=== PATIENT | male | born 1960 | race Caucasian/White ===

== ENCOUNTER 2018-03-11 20:59 | Inpatient (IN) ==
[2018-03-11 22:13] LABS: Basophils % 0.6 % (0.0-0.8); Eosinophils # 0.1 10*3/uL (0.0-0.87); Eosinophils % 4.2 % (0.00-10.9); Hematocrit 29.3 VOL% (42.0-52.0); Hemoglobin 10.1 GM/DL (14.0-18.0); Immature Granulocytes % 0.3 %; Immature Granulocytes Absolute 0.01 #; Lymphocytes # 0.8 10*3/uL (1.4-4.0); Lymphocytes % 22.4 % (21.2-54.2); Mean Corpuscular HGB Conc 34.5 GM/DL (32-36); Mean Corpuscular Hemoglobin 37 PG (27-34); Mean Corpuscular Volume 106.5 FL (87-102); Mean Platelet Volume 10.1 FL (9.6-12.0); Monocytes # 0.3 10*3/uL (0.11-0.8); Neutrophils # 2.1 10*3/uL (1.4-7.4); Neutrophils % 63.5 % (38.7-73.9); Red Blood Count 2.75 MC/CUMM (3.8-5.5); White Blood Count 3.4 T/CUMM (4-12)
[2018-03-11 22:31] LABS: Albumin 2.9 G/DL (3.4-5.0); Bilirubin,Total 2.4 MG/DL (0.2-1.0); Calcium 8.4 MG/DL (8.5-10.1); Osmolality,Calculated 283.1 MOS/KG (273-304); Potassium 3.7 MMOL/L (3.5-5.1); Total Protein 7.1 G/DL (6.4-8.3)
[2018-03-11 22:36] LABS: Platelet Count 45 T/CUMM (130-400)
[2018-03-11 22:37] LABS: Platelet Estimate Decreased
[2018-03-11] MEDS ORDERED: MAGNESIUM SULF RIDER 1 GM in PREMIX 1 EACH IV STA (22:40)
[2018-03-11 23:40] LABS: Apearance,Urine CLEAR (Clear); Bilirubin,Urine Negative (Negative); Blood, Urine Negative (Negative); Glucose,Urine (UA) Negative (Negative); Ketones,Urine Negative (Negative); Mucus,Urine Occasional /LPF (Occasional); Nitrite,Urine Negative (Negative); Protein,Urine Negative; RBC,Urine 1 /HPF (0-4); Squamous Epithelial Cell,Urine Occasional /HPF (0-10); Urine Color Amber (Yellow); Urine Specific Gravity 1.056 (1.001-1.035); WBC,Urine 4 /HPF (0-6)
[2018-03-12] MEDS ORDERED: MAGNESIUM SULF RIDER 50 ML IV ONE (00:45)
[2018-03-12] MEDS ORDERED: DEXTROSE 50% 25 GM/50 ML VIAL IV PRN (02:45)
[2018-03-12] MEDS ORDERED: GLUCAGON 1 MG VIAL IM PRN (02:45)
[2018-03-12] MEDS ORDERED: ONDANSETRON 4 MG/2 ML VIAL IV PRN (02:45)
[2018-03-12] MEDS ORDERED: SPIRONOLACTONE 50 MG TABLET PO SCH (04:00)
[2018-03-12] MEDS ORDERED: FUROSEMIDE 40 MG TABLET PO SCH (04:00)
[2018-03-12] MEDS ORDERED: INFLUENZA VIRUS VACCINE 0.5 ML SYRINGE IM ONE (05:19)
[2018-03-12] MEDS: FUROSEMIDE 40 MG TABLET PO SCH (05:55)
[2018-03-12] MEDS: SPIRONOLACTONE 50 MG TABLET PO SCH (05:55)
[2018-03-12 06:02] LABS: INR 1.4; PT Patient Result 14.3 SECS; Partial Thromboplastin Time 33.5 SECS (0-40)
[2018-03-12 06:18] LABS: Albumin 2.7 G/DL (3.4-5.0); Bilirubin,Total 2.4 MG/DL (0.2-1.0); Calcium 8.1 MG/DL (8.5-10.1); Potassium 4.1 MMOL/L (3.5-5.1); Total Protein 6.7 G/DL (6.4-8.3)
[2018-03-12 07:21] LABS: Hepatitis A Ab IgM Quant < 0.02 Index; Hepatitis A Ab IgM Result Negative (Negative); Hepatitis B Core IgM Quant 0.14 Index; Hepatitis B Core IgM Result Negative (Negative); Hepatitis B Surface Ag Quant < 0.10 Index; Hepatitis B Surface Ag Result Negative (Negative); Hepatitis C Virus Ab Quant > 11.00 Index; Hepatitis C Virus Ab Result Positive (Negative)
[2018-03-12] MEDS ORDERED: MAGNESIUM SULF RIDER 2 GM in PREMIX 1 EACH IV ONE (10:44)
[2018-03-12] MEDS: INSULIN LISPRO 100 UNIT/ML SUBCUT SCH ×2 (12:17→16:40)
[2018-03-12] MEDS: RIFAXIMIN 550 MG TABLET PO SCH (21:26)
[2018-03-13 05:49] LABS: Basophils % 0.6 % (0.0-0.8); Eosinophils # 0.1 10*3/uL (0.0-0.87); Eosinophils % 2.8 % (0.00-10.9); Hematocrit 27.7 VOL% (42.0-52.0); Hemoglobin 9.4 GM/DL (14.0-18.0); Lymphocytes # 0.8 10*3/uL (1.4-4.0); Lymphocytes % 21.4 % (21.2-54.2); Mean Corpuscular HGB Conc 33.9 GM/DL (32-36); Mean Corpuscular Hemoglobin 36 PG (27-34); Mean Corpuscular Volume 106.9 FL (87-102); Mean Platelet Volume 11.4 FL (9.6-12.0); Monocytes # 0.3 10*3/uL (0.11-0.8); Monocytes % 8.1 % (1.7-12.7); Neutrophils # 2.4 10*3/uL (1.4-7.4); Neutrophils % 67.1 % (38.7-73.9); Red Blood Count 2.59 MC/CUMM (3.8-5.5); Red Cell Distribution Width 14.6 % (9.3-17.3); White Blood Count 3.6 T/CUMM (4-12)
[2018-03-13 06:04] LABS: Platelet Count 38 T/CUMM (130-400)
[2018-03-13 06:08] LABS: Calcium 8.2 MG/DL (8.5-10.1); Osmolality,Calculated 281.3 MOS/KG (273-304); Potassium 4.1 MMOL/L (3.5-5.1)
[2018-03-13 06:13] LABS: Hypochromasia Slight; Ovalocytes 2+; Platelet Estimate Decreased
[2018-03-13 06:18] LABS: % Iron Saturation 64.1 % (18-50)
[2018-03-13 06:19] LABS: Folate 9.7 NG/ML (5.4-24.0)
[2018-03-13] MEDS: INSULIN LISPRO 100 UNIT/ML SUBCUT SCH ×2 (08:39→17:35)
[2018-03-13] MEDS: SPIRONOLACTONE 50 MG TABLET PO SCH (09:51)
[2018-03-13] MEDS: FUROSEMIDE 40 MG TABLET PO SCH (09:51)
[2018-03-13] MEDS: RIFAXIMIN 550 MG TABLET PO SCH ×2 (09:52→21:09)
[2018-03-14 05:43] LABS: Basophils % 0.9 % (0.0-0.8); Eosinophils # 0.2 10*3/uL (0.0-0.87); Hematocrit 28.4 VOL% (42.0-52.0); Hemoglobin 9.9 GM/DL (14.0-18.0); Immature Granulocytes % 0.2 %; Immature Granulocytes Absolute 0.01 #; Lymphocytes # 0.8 10*3/uL (1.4-4.0); Lymphocytes % 19.5 % (21.2-54.2); Mean Corpuscular HGB Conc 34.9 GM/DL (32-36); Mean Corpuscular Hemoglobin 38 PG (27-34); Mean Corpuscular Volume 107.6 FL (87-102); Mean Platelet Volume 10.1 FL (9.6-12.0); Monocytes # 0.3 10*3/uL (0.11-0.8); Monocytes % 7.8 % (1.7-12.7); Neutrophils # 2.9 10*3/uL (1.4-7.4); Neutrophils % 67.6 % (38.7-73.9); Platelet Count 42 T/CUMM (130-400); Red Blood Count 2.64 MC/CUMM (3.8-5.5); Red Cell Distribution Width 14.8 % (9.3-17.3); White Blood Count 4.3 T/CUMM (4-12)
[2018-03-14 05:50] LABS: INR 1.4; PT Patient Result 14.8 SECS
[2018-03-14 06:04] LABS: Albumin 2.5 G/DL (3.4-5.0); Bilirubin,Total 1.6 MG/DL (0.2-1.0); Calcium 8.2 MG/DL (8.5-10.1); Osmolality,Calculated 281.4 MOS/KG (273-304); Potassium 3.7 MMOL/L (3.5-5.1); Total Protein 6.7 G/DL (6.4-8.3)
[2018-03-14 06:15] LABS: Ovalocytes 1+; Platelet Estimate Decreased
[2018-03-14] MEDS: INSULIN LISPRO 100 UNIT/ML SUBCUT SCH ×2 (08:48→16:32)
[2018-03-14] MEDS: RIFAXIMIN 550 MG TABLET PO SCH ×2 (08:49→21:45)
[2018-03-14] MEDS: SPIRONOLACTONE 50 MG TABLET PO SCH (08:49)
[2018-03-14] MEDS: FUROSEMIDE 40 MG TABLET PO SCH (08:49)
[2018-03-14] MEDS ORDERED: MAGNESIUM SULF RIDER 2 GM in PREMIX 1 EACH IV PRN (13:42)
[2018-03-14] MEDS ORDERED: MAGNESIUM SULF RIDER 4 GM in PREMIX 1 EACH IV PRN (13:42)
[2018-03-14] MEDS ORDERED: POTASSIUM CHLORIDE RIDER 10 MEQ in PREMIX 1 EACH IV PRN (13:42)
[2018-03-14] MEDS ORDERED: ALUMINUM/MAGNES/SIMETH MAX STR 30 ML UDCUP PO PRN (15:59)
[2018-03-14] MEDS ORDERED: MAGNESIUM HYDROXIDE SUSP 30 ML UDCUP PO PRN (15:59)
[2018-03-14] MEDS: PANTOPRAZOLE 40 MG TABLET PO SCH (16:32)
[2018-03-14] MEDS: LACTULOSE 20 GM/30 ML UDCUP PO SCH (20:35)
[2018-03-14 20:42] LABS: Neutrophils,Peritoneal Fluid 22 %
[2018-03-14 20:43] LABS: RBC,Peritoneal Fluid 20 T/CUMM
[2018-03-15 04:44] LABS: Basophils % 0.4 % (0.0-0.8); Eosinophils # 0.2 10*3/uL (0.0-0.87); Eosinophils % 3.6 % (0.00-10.9); Hematocrit 27.2 VOL% (42.0-52.0); Hemoglobin 9.4 GM/DL (14.0-18.0); Immature Granulocytes % 0.4 %; Immature Granulocytes Absolute 0.02 #; Lymphocytes # 0.7 10*3/uL (1.4-4.0); Lymphocytes % 15.7 % (21.2-54.2); Mean Corpuscular HGB Conc 34.6 GM/DL (32-36); Mean Corpuscular Hemoglobin 37 PG (27-34); Mean Corpuscular Volume 106.7 FL (87-102); Monocytes # 0.4 10*3/uL (0.11-0.8); Monocytes % 8.7 % (1.7-12.7); Neutrophils # 3.2 10*3/uL (1.4-7.4); Neutrophils % 71.2 % (38.7-73.9); Red Blood Count 2.55 MC/CUMM (3.8-5.5); Red Cell Distribution Width 14.9 % (9.3-17.3); White Blood Count 4.5 T/CUMM (4-12)
[2018-03-15 04:56] LABS: Platelet Count 42 T/CUMM (130-400)
[2018-03-15 05:15] LABS: Calcium 7.6 MG/DL (8.5-10.1); Osmolality,Calculated 279.5 MOS/KG (273-304); Potassium 3.7 MMOL/L (3.5-5.1)
[2018-03-15] MEDS: RIFAXIMIN 550 MG TABLET PO SCH (09:00)
[2018-03-15] MEDS: LACTULOSE 20 GM/30 ML UDCUP PO SCH (09:00)
[2018-03-15] MEDS: INSULIN LISPRO 100 UNIT/ML SUBCUT SCH ×2 (09:30→17:00)
[2018-03-15] MEDS ORDERED: LIDOCAINE 100 MG/5 ML SYRINGE ONE (10:00)
[2018-03-15] MEDS ORDERED: PROPOFOL 200 MG/20 ML VIAL IV ONE (10:00)
[2018-03-15] MEDS: PANTOPRAZOLE 40 MG TABLET PO SCH (14:32)
[2018-03-15] MEDS: FUROSEMIDE 40 MG TABLET PO SCH (14:32)
[2018-03-15] MEDS: SPIRONOLACTONE 50 MG TABLET PO SCH (14:33)
[2018-03-15 14:35] LABS: Adenovirus F40/41 Negative (Negative); Astrovirus Negative (Negative); Cryptosporidium species Negative (Negative); Cyclospora cayetanensis Negative (Negative); Entamoeba histolytica Negative (Negative); Enteropathogenic E.coli (EPEC) Negative (Negative); Enterotoxigenic E. coli (ETEC) Negative (Negative); Norovirus GI/GII Negative (Negative); Plesiomonas shigelloides Negative (Negative); Salmonella species Negative (Negative); Sapovirus Negative (Negative); Shiga toxin producing E. coli Negative (Negative); Shigella/Enteroinvasive E.coli Negative (Negative); Specimen Source STOOL; Vibrio cholerae Negative (Negative); Yersinia enterocolitica Negative (Negative)
[2018-03-15 17:02] VITALS: BP 127/87
== END 2018-03-15 18:25 | DRG 432 ==
LOC: N.ED 20:59 → SUATTDRO 03-12 02:06 → N.EDINP 03-12 02:06 → N.3W 03-12 02:28
PROVIDERS: ADMIT Family Medicine; ATTEND Internal Medicine